=== PATIENT | female | born 1995 | race African-American/Black ===

== ENCOUNTER → 2021-08-06 | Outpatient (CLI) | payer BC | END | disposition home or self-care (01) | LOC: RAD 08:30 → ORTHO 08:30 | PROVIDERS: ATTEND Orthopaedic Surgery | DX: M25.561 Pain in right knee (principal); M25.562 Pain in left knee ==

== ENCOUNTER 2021-08-26 10:01 | Emergency (ER) | payer BC ==
[~2021-08-26] VITALS: Ht 152.4 cm; Wt 56.7 kg
[2021-08-26] MEDS ORDERED: ABILIFY2 MG PO (10:17)
[2021-08-26 10:44] LABS: BASO % 0.2 % (0.0-1.0); EOS % 0.7 % (1.0-4.0); HEMATOCRIT 41.5 % (37.0-47.0); LYMPH # 1.7 10*3/uL (1.3-4.4); LYMPH % 30.5 % (27.0-41.0); MEAN CELL VOLUME 85.4 fl (81.0-99.0); MEAN CORPUSCULAR HGB CONC 32.8 g/dl (33.0-37.0); MONO # 0.4 10*3/uL (0.1-1.0); MONO % 7.2 % (3.0-9.0); NEUT # 3.4 10*3/uL (2.3-7.9); NEUT % 61.2 % (47.0-73.0); PLATELET COUNT AUTOMATED 222 10*3/uL (130-400); RED BLOOD COUNT 4.86 10*6/uL (4.10-5.10); RED CELL DISTRI WIDTH 12.5 % (0-14.5); WHITE BLOOD COUNT 5.6 10*3/uL (4.8-10.8)
[2021-08-26 11:15] LABS: ALBUMIN 3.7 gm/dl (3.1-4.5); ALKALINE PHOSPHATASE 72 U/L (45-117); BUN 13 mg/dl (7-24); CHLORIDE 111 mmol/L (98-107); CPK 110 U/L (26-192); CREATININE 0.66 mg/dL (0.55-1.02); ETHYL ALCOHOL < 3.0 mg/dl (<3); POTASSIUM 3.6 mmol/L (3.5-5.1); SGOT/AST 22 IU/L (3-35); SGPT/ALT 55 U/L (12-78); SODIUM 138 mmol/L (136-145)
[2021-08-26 11:35] LABS: URINE AMPHETAMINES < 1000 (1000ng/ml); URINE BARBITURATES < 200 (200ng/ml); URINE BENZODIAZEPINES < 200 (200ng/ml); URINE CANNABINOIDS (THC) < 50 (50ng/ml); URINE COCAINE < 300 (300ng/ml); URINE METHADONE < 300 (300ng/ml); URINE OPIATES < 300 (300ng/ml)
[2021-08-26 11:37] LABS: URINE PHENCYCLIDINE < 25 (25ng/ml)
[2021-08-26 11:54] LABS: BETA-HCG, QUANT < 1.0 mIU/mL (1-3)
[2021-08-26 11:59] LABS: BILIRUBIN Negative (Negative); BLOOD Negative (Negative); COLOR Yellow (Yellow); GLUCOSE Negative (Negative); KETONE Negative (Negative); LEUKO ESTERASE 1+ (Negative); NITRITE Negative (Negative); PH 6.5 (4.5-8.0); UROBILINOGEN 0.2 E.U./dl (0.0-1.0)
[2021-08-26 12:09] LABS: CLARITY Cloudy (Clear)
[2021-08-26 12:23] LABS: BACTERIA 1+; MUCOUS 1+
== END 2021-08-26 16:48 ==
LOC: ED 10:01
PROVIDERS: Emergency Medicine
DX: U07.1 COVID-19 (principal); F43.21 Adjustment disorder with depressed mood; Z88.1 Allergy status to other antibiotic agents

== ENCOUNTER 2021-10-30 19:25 | Emergency (ER) | payer SELFPAY ==
[~2021-10-30] VITALS: Ht 152.4 cm; Wt 54.4 kg
[~2021-10-30 19:25] MED LIST: ABILIFY2 MG PO
[2021-10-30] MEDS ORDERED: TRAZODONE50 MG PO (19:35)
[2021-10-30] MEDS ORDERED: DEPAKOTE500 MG PO (19:35)
[2021-10-30] MEDS ORDERED: IBU800 M1 PO (19:35)
[2021-10-30] MEDS ORDERED: ALLEGRA ALLERG180 M2 PO (19:54)
[2021-10-30] MEDS ORDERED: FLONASE ALLERG9.9 ML NAS (19:54)
[2021-10-30] MEDS ORDERED: MUCINEX1200 M1 PO (19:54)
[2021-10-30] MEDS ORDERED: AUGMENTIN 875-875 MG PO (19:54)
== END 2021-10-30 20:05 | disposition home or self-care (01) ==
LOC: ED 19:25
DX: J01.00 Acute maxillary sinusitis, unspecified (principal); F17.200 Nicotine dependence, unspecified, uncomplicated; Z79.899 Other long term (current) drug therapy; Z88.3 Allergy status to other anti-infective agents